=== PATIENT | female | born 1975 | race Caucasian/White ===

== ENCOUNTER 2017-12-02 18:58 | Emergency (ER) | payer MEDICAID, OTHER ==
[~2017-12-02] VITALS: Ht 154.9 cm; Wt 48.0 kg
[2017-12-02 19:05] VITALS: BP 164/64
== END 2017-12-03 01:11 | disposition left against medical advice (07) ==
LOC: ER 21:22
DX: R10.9 Unspecified abdominal pain (principal); Z53.21 Procedure and treatment not carried out due to patient leaving prior to being seen by health care provider